=== PATIENT | female | born 1945 | race Caucasian/White ===

== ENCOUNTER 2017-03-31 15:51 | Inpatient (IN) | payer MEDICARE, OTHER ==
[~2017-03-31] VITALS: Ht 168.9 cm; Wt 75.7 kg
[2017-03-31 16:18] LABS: BASO # 0.1 (0.0-0.2); BASO % 0.9 % (0.0-2.0); EOS # 0.3 (0.0-0.7); EOS % 5.5 % (0-4.0); GRAN # 2.6 (1.4-6.5); GRAN % 43.6 % (42.2-75.2); LYMPH # 2.4 (1.2-3.4); LYMPH % 40.1 % (20.0-51.0); MEAN CELL VOLUME 82 fl (80.0-100.0); MEAN CORPUSCULAR HGB CONC 33 g/dl (33.0-37.0); MEAN PLATELET VOLUME 9.8 fl (7.4-10.4); MONO # 0.6 (0.1-0.6); MONO % 9.7 % (1.7-9.3); PLATELET COUNT 204 K/mm3 (130-400); RED BLOOD COUNT 4.27 M/mm3 (4.10-5.30); WHITE BLOOD COUNT 5.9 K/mm3 (4.8-10.8)
[2017-03-31 16:23] LABS: HEMOGLOBIN 11.4 g/dl (12.5-16.0); MEAN CORPUSCULAR HEMOGLOBIN 27 pg (27.0-31.0)
[2017-03-31 16:27] LABS: PROTHROMBIN TIME 11.5 SECONDS (9.7-12.8)
[2017-03-31 16:28] LABS: ADJUSTED CALCIUM 8.8 mg/dL (8.4-10.2); ALANINE AMINOTRANSFERASE 28 U/L (9-52); ALBUMIN 4.3 gm/dL (3.5-5.0); ALKALINE PHOSPHATASE 91 U/L (50-136); ANION GAP 11 mmol/L (7-16); BILIRUBIN,TOTAL 0.7 mg/dL (0.0-1.0); BLOOD UREA NITROGEN 22 mg/dL (7-17); CARBON DIOXIDE 23 mmol/L (22-30); CHLORIDE 105 mmol/L (98-107); CREATININE, serum 0.74 mg/dL (0.52-1.25); GLUCOSE 126 mg/dL (74-106); POTASSIUM 3.9 mmol/L (3.4-5.0); SODIUM 139 mmol/L (137-145); TOTAL PROTEIN 7.2 gm/dL (6.4-8.2)
[2017-03-31] MEDS ORDERED: [UNRECOGNIZED DRUG - REMARK] (16:28)
[2017-03-31] MEDS ORDERED: DITROPAN XL 5MG5 M1 PO (16:29)
[2017-03-31 16:30] LABS: PARTIAL THROMBOPLASTIN TIME 27.6 SECONDS (26.0-37.0)
[2017-03-31 16:40] LABS: TROPONIN-I < 0.012 ng/mL (0.000-0.034)
[2017-03-31 21:53] VITALS: BP 144/72; PULSE 64; TEMP 97.8
[2017-03-31 22:00] LABS: CREATINE KINASE 105 U/L (30-135)
[2017-04-01] VITALS: BP 127/60; PULSE 63; TEMP 97.7
[2017-04-01 03:32] VITALS: BP 129/77; PULSE 63; TEMP 98.3
[2017-04-01 07:40] VITALS: BP 148/76; PULSE 76; TEMP 97.6
[2017-04-01 08:38] LABS: TROPONIN-I < 0.012 ng/mL (0.000-0.034)
[2017-04-01 09:23] LABS: CHOLESTEROL 197 mg/dL (120-200); HDL CHOLESTEROL 41 mg/dL; LDL CHOLESTEROL 122 mg/dL; TRIGLYCERIDE 170 mg/dL
[2017-04-01 09:52] VITALS: BP 148/76; PULSE 76
[2017-04-01 11:14] VITALS: BP 150/81; PULSE 71; TEMP 98.1
[2017-04-01 15:10] VITALS: BP 127/86; PULSE 85; TEMP 97.9
[2017-04-01] MEDS ORDERED: PRAVACHOL 20MG20 MG PO (17:41)
[2017-04-01] MEDS ORDERED: ASPIRIN 81M81 MG/TA2 PO (17:41)
== END 2017-04-01 18:56 | disposition home or self-care (01) | DRG 313 ==
LOC: COL.ER 15:51 → MEDICAL 17:49
PROVIDERS: Emergency Medicine; Internal Medicine Cardiovascular Disease
DX: R07.9 Chest pain, unspecified (principal)
CPT/HCPCS: 99223-AI; 99239; A9502; J1650; J7030